=== PATIENT | female | born 1945 | race Caucasian/White ===

== ENCOUNTER → 2017-12-16 14:46 | Outpatient (CLI) | payer MEDICARE | END | disposition home or self-care (01) | LOC: D.LABREF 14:46 | PROVIDERS: Orthopaedic Surgery | DX: M17.11 Unilateral primary osteoarthritis, right knee (principal); Z11.8 Encounter for screening for other infectious and parasitic diseases ==

== ENCOUNTER 2018-01-15 10:00 | Inpatient (IN) | payer MEDICARE ==
[~2018-01-15] VITALS: Ht 165.1 cm; Wt 70.5 kg
--- NOTE | ~2018-01-15 | MORECARE ---
CASE MANAGEMENT DISCHARGE SUMMARY PATIENT: YUNG PETERSON UNIT: [id number] ADM DATE: 01/21/18 AGE: 72 : 43 SEX: F ROOM/BED: D.2239 AUTHOR: WALTDOC PHYSICIAN: REFERRING PHYSICIAN: GRZEGORZ MUSE DO DATE OF SERVICE: 01/23/18 Discharge Plan Patient Name: YUNG PETERSON Facility: [facility]:[place] : 1945 Planned Disposition: Home Anticipated Discharge Date: Discharge Date: Expected LOS: Initial Reviewer: [email or web address] Initial Review Date: 01/22/2018 Generated: 01/23/18 10:57 am Comments DCP- Discharge Planning Updated by [email or web address]: Xochilt Rodriguez on 01/23/18 8:[address] Spoke with Grzegorz with [employer] and they have the order for the walker, CPM machine, cold therapy and BSC. He states they will deliver on discharge. She does have her brother's walker that she can use in the mean time. I will call [facility] when discharged. CM will continue to follow and assist with discharge planning/needs. DCP- Discharge Planning Updated by [email or web address]: Xochilt Warrencarmen on 01/22/18 4:[address] Patient Name: YUNG PETERSON Admission Status: Elective Accout number: [id number] Admission Date: 01-21-2018 : 1945 Admission Diagnosis: Attending: GRZEGORZ MUSE Current LOS: 1 Anticipated DC Date: Planned Disposition: Home Primary Insurance: [employer]IC[employer] ADV Discharge Planning Comments: CM met with patient to discuss discharge planning, her niece is in the room and verbal permission received to discuss discharge planning with family in room. She states she lives with her daughter and son in law. States she is independent with all ADL's and IADL's. She currently has her brother's walker, but would like her own. Discussed availability of rehab, DME and home health services. She states Quinton with [employer] is getting her a CPM machine. I will call [employer] tomorrow and verify equipment ordered. She would like to have out patient PT at [facility]. CM will continue to follow and assist with discharge planning/needs. Business Performance Manager: Xochilt Rodriguez DCPIA - Discharge Planning Initial Assessment Updated by [email or web address]: Xochilt Jennifer on 01/22/18 5:19 pm * Is the patient Alert and Oriented? Yes * How many steps to enter\exit or inside your home? 2/0 * PCP Dr. Jones * Pharmacy [facility] in [place] * Preadmission Environment Home with Family * ADLs Independent * Equipment None * List name and contact numbers for known caregivers / representatives who currently or will assist patient after discharge: Martha rai - [phone] Shakila Riggins - DTR - [phone] Addy Scott brother - [phone] * Verbal permission to speak to the caregivers and representatives has been obtained from the patient. Yes * Community resources currently utilized None * Additional services required to return to the preadmission environment? Yes * Can the patient safely return to the preadmission environment? Yes * Has this patient been hospitalized within the prior 30 days at any hospital? No Last DP export: 01/22/18 4:36 Patient Name: YUNG PETERSON Page [id number] at 0958 All edits/amendments must be made on the electronic document DICTATION DATE: 01/23/18956 PARTNER CCO: ARAMIS 01/23/18956 RPT#: [id number] DC DATE: STATUS: ADM IN [facility] [address] [place] [address] END OF REPORT
--- NOTE | ~2018-01-15 | MORECARE ---
CASE MANAGEMENT DISCHARGE SUMMARY PATIENT: YUNG PETERSON UNIT: [id number] ADM DATE: 01/21/18 AGE: 72 : 43 SEX: F ROOM/BED: D.2239 AUTHOR: VALE GODOY PHYSICIAN: REFERRING PHYSICIAN: ENMANUEL MUSE DO DATE OF SERVICE: 01/22/18 Discharge Plan Patient Name: YUNG PETERSON [facility] : 1945 Planned Disposition: Home Anticipated Discharge Date: Discharge Date: Expected LOS: Initial Reviewer: [email or web address] Initial Review Date: 01/22/2018 Generated: 01/22/18 6:27 pm DCPIA - Discharge Planning Initial Assessment Updated by [email or web address]: Xochilt Rodriguez on 01/22/18 5:19 pm * Is the patient Alert and Oriented? Yes * How many steps to enter\exit or inside your home? 2/0 * PCP Dr. Jones * Pharmacy [facility] in [place] * Preadmission Environment Home with Family * ADLs Independent * Equipment None * List name and contact numbers for known caregivers / representatives who currently or will assist patient after discharge: Martha rai - [phone] Shakila Riggins [facility] - [phone] Addy Scott [facility] [phone] * Verbal permission to speak to the caregivers and representatives has been obtained from the patient. Yes * Community resources currently utilized None * Additional services required to return to the preadmission environment? Yes * Can the patient safely return to the preadmission environment? Yes * Has this patient been hospitalized within the prior 30 days at any hospital? No Last DP export: 01/22/18 4:18 Patient Name: YUNG PETERSON Page 24088 at 1727 All edits/amendments must be made on the electronic document DICTATION DATE: 01/22/181726 TANNING SOLUTION MAKER: ARAMIS 01/22/181726 RPT#: [id number] DC DATE: STATUS: ADM IN [facility] [address] [place] [address] END OF REPORT
--- NOTE | ~2018-01-15 | MORECARE ---
CASE MANAGEMENT DISCHARGE SUMMARY PATIENT: YUNG PETERSON UNIT: [id number] ADM DATE: 01/21/18 AGE: 72 : 43 SEX: F ROOM/BED: D.2239 AUTHOR: WALTDOC PHYSICIAN: REFERRING PHYSICIAN: GRZEGORZ MUSE DO DATE OF SERVICE: 01/31/18 Discharge Plan Patient Name: YUNG PETERSON Facility: [facility]:[place] : 1945 Planned Disposition: Home Anticipated Discharge Date: Discharge Date: 01/29/2018 Expected LOS: Initial Reviewer: [email or web address] Initial Review Date: 01/22/2018 Generated: 01/31/18 6:06 pm Comments DCP- Discharge Planning Updated by [email or web address]: Xochilt Rodriguez on 01/29/18 10:[address] Received order for discharge. Inpatient rehab at [facility] has accepted her. She will discharge to inpatient rehab at [facility] today. Patient and niece are in the room and informed and agree with discharge plan. CM will continue to follow and assist with discharge planning/needs. DCP- Discharge Planning Updated by [email or web address]: Xochilt Rodriguez on 01/23/18 8:[address] Spoke with Grzegorz with [email or web address] and they have the order for the walker, CPM machine, cold therapy and BSC. He states they will deliver on discharge. She does have her brother's walker that she can use in the mean time. I will call [facility] when discharged. CM will continue to follow and assist with discharge planning/needs. DCP- Discharge Planning Updated by [email or web address]: Xochilt Rodriguez on 01/22/18 4:[address] Patient Name: YUNG PETERSON Admission Status: Elective Accout number: [id number] Admission Date: 01-21-2018 : 1945 Admission Diagnosis: Attending: GRZEGORZ MUSE Current LOS: 1 Anticipated DC Date: Planned Disposition: Home Primary Insurance: WE[employer] MEDICARE ADV Discharge Planning Comments: CM met with patient to discuss discharge planning, her niece is in the room and verbal permission received to discuss discharge planning with family in room. She states she lives with her daughter and son in law. States she is independent with all ADL's and IADL's. She currently has her brother's walker, but would like her own. Discussed availability of rehab, DME and home health services. She states Quinton with [employer] is getting her a CPM machine. I will call [employer] tomorrow and verify equipment ordered. She would like to have out patient PT at [facility]. CM will continue to follow and assist with discharge planning/needs. Brand Manager: Xochilt Warrencarmen DCPIA - Discharge Planning Initial Assessment Updated by [email or web address]: Xochilt Warrencarmen on 01/22/18 5:19 pm * Is the patient Alert and Oriented? Yes * How many steps to enter\exit or inside your home? 2/0 * PCP Dr. Jones * Pharmacy [facility] in [place] * Preadmission Environment Home with Family * ADLs Independent * Equipment None * List name and contact numbers for known caregivers / representatives who currently or will assist patient after discharge: Martha rai - [phone] Shakila Gilson DTR - [phone] Addy Scott [facility] - [phone] * Verbal permission to speak to the caregivers and representatives has been obtained from the patient. Yes * Community resources currently utilized None * Additional services required to return to the preadmission environment? Yes * Can the patient safely return to the preadmission environment? Yes * Has this patient been hospitalized within the prior 30 days at any hospital? No Coverage Notice Reviewer: [email or web address] - Xochilt Warrencarmen Notice Issued Date-Time: 01/28/2018 11:15 Notice Type: IM Discharge Notice Notice Delivered To: Patient Relationship to Patient: Self Overedge Sewer Name: Delivery Method: HAND - Hand Delivered Caitlin Days: Prior Verbal Notification: Recipient Understood Notice: Yes Recipient Signature: Yes Med Rec Note Co-signed by Attending: Coverage Notice Comment: IMM explained, signed, copy given, original placed in MR Last DP export: 01/29/18 10:52 Patient Name: YUNG PETERSON Page [id number] at 1706 All edits/amendments must be made on the electronic document DICTATION DATE: 01/31/181705 UI DESIGNER: ARAMIS 01/31/181705 RPT#: [id number] DC DATE:01/29/18 STATUS: DIS IN [facility] [address] [place] [address] END OF REPORT
--- NOTE | ~2018-01-15 | MORECARE ---
CASE MANAGEMENT DISCHARGE SUMMARY PATIENT: YUNG PETERSON UNIT: [id number] ADM DATE: 01/21/18 AGE: 72 : 43 SEX: F ROOM/BED: D.2239 AUTHOR: VALE GODOY PHYSICIAN: REFERRING PHYSICIAN: GRZEGORZ MUSE DO DATE OF SERVICE: 01/29/18 Discharge Plan Patient Name: YUNG PETERSON Facility: [facility]:[place] : 1945 Planned Disposition: Home Anticipated Discharge Date: Discharge Date: Expected LOS: Initial Reviewer: [email or web address] Initial Review Date: 01/22/2018 Generated: 01/29/18 12:52 pm Comments DCP- Discharge Planning Updated by [email or web address]: Xochilt Rodriguez on 01/29/18 10:[address] Received order for discharge. Inpatient rehab at [facility] has accepted her. She will discharge to inpatient rehab at [facility] today. Patient and niece are in the room and informed and agree with discharge plan. CM will continue to follow and assist with discharge planning/needs. DCP- Discharge Planning Updated by [email or web address]: Xochilt Rodriguez on 01/23/18 8:[address] Spoke with Grzegorz with [facility] and they have the order for the walker, CPM machine, cold therapy and BSC. He states they will deliver on discharge. She does have her brother's walker that she can use in the mean time. I will call [facility] when discharged. CM will continue to follow and assist with discharge planning/needs. DCP- Discharge Planning Updated by [email or web address]: Xochilt Rodriguez on 01/22/18 4:[address] Patient Name: YUNG PETERSON Admission Status: Elective Accout number: [id number] Admission Date: 01-21-2018 : 1945 Admission Diagnosis: Attending: GRZEGORZ MUSE Current LOS: 1 Anticipated DC Date: Planned Disposition: Home Primary Insurance: WE[employer] MEDICARE ADV Discharge Planning Comments: CM met with patient to discuss discharge planning, her niece is in the room and verbal permission received to discuss discharge planning with family in room. She states she lives with her daughter and son in law. States she is independent with all ADL's and IADL's. She currently has her brother's walker, but would like her own. Discussed availability of rehab, DME and home health services. She states Quinton with [employer] is getting her a CPM machine. I will call [employer] tomorrow and verify equipment ordered. She would like to have out patient PT at [facility]. CM will continue to follow and assist with discharge planning/needs. Stopboard Assembler: Xochiltabdirizak Rodriguez DCPIA - Discharge Planning Initial Assessment Updated by [email or web address]: Xochilt Jennifer on 01/22/18 5:19 pm * Is the patient Alert and Oriented? Yes * How many steps to enter\exit or inside your home? 2/0 * PCP Dr. Jones * Pharmacy [facility] in [place] * Preadmission Environment Home with Family * ADLs Independent * Equipment None * List name and contact numbers for known caregivers / representatives who currently or will assist patient after discharge: Martha rai - [phone] Shakila Riggins DTR - [phone] Addy Scott [facility] - [phone] * Verbal permission to speak to the caregivers and representatives has been obtained from the patient. Yes * Community resources currently utilized None * Additional services required to return to the preadmission environment? Yes * Can the patient safely return to the preadmission environment? Yes * Has this patient been hospitalized within the prior 30 days at any hospital? No Coverage Notice Reviewer: [email or web address] - Xochilt Jennifer Notice Issued Date-Time: 01/28/2018 11:15 Notice Type: IM Discharge Notice Notice Delivered To: Patient Relationship to Patient: Self Slicing Machine Operator Name: Delivery Method: HAND - Hand Delivered Caitlin Days: Prior Verbal Notification: Recipient Understood Notice: Yes Recipient Signature: Yes Med Rec Note Co-signed by Attending: Coverage Notice Comment: IMM explained, signed, copy given, original placed in MR Last DP export: 01/23/18 8:57 Patient Name: YUNG PETERSON Page 26929 at 1152 All edits/amendments must be made on the electronic document DICTATION DATE: 01/29/18 1151 SOUND PRINTER: ARAMIS 01/29/18 1151 RPT#: [id number] DC DATE: STATUS: ADM IN [facility] [address] [place] [address] END OF REPORT
--- NOTE | ~2018-01-15 | MORECARE ---
CASE MANAGEMENT DISCHARGE SUMMARY PATIENT: YUNG PETERSON UNIT: [id number] ADM DATE: 01/21/18 AGE: 72 : 43 SEX: F ROOM/BED: D.2239 AUTHOR: VALE GODOY PHYSICIAN: REFERRING PHYSICIAN: ENMANUEL MUSE DO DATE OF SERVICE: 01/22/18 Discharge Plan Patient Name: YUNG PETERSON Facility: [facility]:[place] : 1945 Planned Disposition: Home Anticipated Discharge Date: Discharge Date: Expected LOS: Initial Reviewer: [email or web address] Initial Review Date: 01/22/2018 Generated: 01/22/18 6:18 pm Patient Name: YUNG PETERSON Page 53484 at 1718 All edits/amendments must be made on the electronic document DICTATION DATE: 01/22/181717 BULLET ASSEMBLY PRESS SETTER OPERATOR: ARAMIS 01/22/181717 RPT#: [id number] DC DATE: STATUS: ADM IN [facility] [address] [place] [address] END OF REPORT
--- NOTE | ~2018-01-15 | MORECARE ---
CASE MANAGEMENT DISCHARGE SUMMARY PATIENT: YUNG PETERSON UNIT: [id number] ADM DATE: 01/21/18 AGE: 72 : 43 SEX: F ROOM/BED: D.2239 AUTHOR: WALTDOC PHYSICIAN: REFERRING PHYSICIAN: ENMANUEL MUSE DO DATE OF SERVICE: 01/22/18 Discharge Plan Patient Name: YUNG PETERSON Facility: [facility]:[place] : 1945 Planned Disposition: Home Anticipated Discharge Date: Discharge Date: Expected LOS: Initial Reviewer: [email or web address] Initial Review Date: 01/22/2018 Generated: 01/22/18 6:36 pm Comments DCP- Discharge Planning Updated by [email or web address]: Xochilt Rodriguez on 01/22/18 4:[address] Patient Name: YUNG PETERSON Admission Status: Elective Accout number: [id number] Admission Date: 01-21-2018 : 1945 Admission Diagnosis: Attending: ENMANUEL MUSE Current LOS: 1 Anticipated DC Date: Planned Disposition: Home Primary Insurance: WE[employer] MEDICARE ADV Discharge Planning Comments: CM met with patient to discuss discharge planning, her niece is in the room and verbal permission received to discuss discharge planning with family in room. She states she lives with her daughter and son in law. States she is independent with all ADL's and IADL's. She currently has her brother's walker, but would like her own. Discussed availability of rehab, DME and home health services. She states Quinton with [employer] is getting her a CPM machine. I will call [employer] tomorrow and verify equipment ordered. She would like to have out patient PT at [facility]. CM will continue to follow and assist with discharge planning/needs. Cushion Stuffer: Xochilt Rodriguez DCPIA - Discharge Planning Initial Assessment Updated by [email or web address]: Xochilt Rodriguez on 01/22/18 5:19 pm * Is the patient Alert and Oriented? Yes * How many steps to enter\exit or inside your home? 2/0 * PCP Dr. Jones * Pharmacy [facility] in [place] * Preadmission Environment Home with Family * ADLs Independent * Equipment None * List name and contact numbers for known caregivers / representatives who currently or will assist patient after discharge: Martha rai - [phone] Shakila Riggins - DTR - [phone] Addy Scott - brother - [phone] * Verbal permission to speak to the caregivers and representatives has been obtained from the patient. Yes * Community resources currently utilized None * Additional services required to return to the preadmission environment? Yes * Can the patient safely return to the preadmission environment? Yes * Has this patient been hospitalized within the prior 30 days at any hospital? No Last DP export: 01/22/18 4:27 Patient Name: YUNG PETERSON Page 58076 at 1736 All edits/amendments must be made on the electronic document DICTATION DATE: 01/22/181735 POULTRYMAN: ARAMIS 01/22/181735 RPT#: [id number] DC DATE: STATUS: ADM IN [facility] [address] [place] [address] END OF REPORT
--- NOTE | ~2018-01-15 | OP ---
PATIENT NAME: YUNG PETERSON MEDICAL RECORD: [id number] :[birth year] LOCATION:D.[facility] [address] ADMISSION DATE:01/21/18 SURGEON: GRZEGORZ MUSE DO DATE OF OPERATION: 01/21/2018 PROCEDURE PERFORMED: Right total knee arthroplasty. PREOPERATIVE DIAGNOSIS: End-stage severe right knee osteoarthritis. POSTOPERATIVE DIAGNOSIS: End-stage severe right knee osteoarthritis. INDICATIONS: Ms. Peterson is a 72-year-old female that has been seen in my office for quite some time. I have tried all manner of conservative management including injections, therapy exercises at home and she did not respond well as of recently through the last injection and was tired of dealing with the pain and is affecting her activities of daily living and she wanted something done surgically. She was informed of the risks and benefits including fracture, infection, bleeding, damage to nerves and vessels, need for further surgery. She was okay with that and those risks and consented to the procedure. SURGEON: Grzegorz Muse DO DESCRIPTION OF PROCEDURE: The patient was given a block by anesthesia in the preoperative area and taken to the operative suite, laid in supine position. The right lower extremity was prepped and draped in sterile fashion. A timeout was performed and everyone was in agreement with the correct side, site, patient and procedure. The patient was given 2 grams of Ancef and 80 units of gentamicin preoperatively. She did have a UTI preoperatively and was covered it with gentamicin. She was informed of the increased risk of that with UTI. After the timeout had been performed and the right lower extremity was prepped and draped, the incision was marked out. Ioban was placed over the skin. The incision was then made down to the capsule with a 10-blade scalpel in the midline of the knee. A medial parapatellar approach was used to the capsule and the fat pad was removed. Patella was everted. Patella was milled down. Once the patella was milled down, the femur was exposed and bleeding was all coagulated with Aquamantys and the plasma knife during the surgery due to the fact that no tourniquet was used. The intramedullary canal was then entered with a drill in the femur and the distal femur guide was used and the distal femur was cut. Tibia was then exposed. The tibia was cut. The menisci were removed and the tibia then was recut twice in order to fit the 10 extension block. All the debris and meniscus had been removed and the Aquamantys was used in the posterior capsule and from the medial and lateral genicular arteries. Then 10 extension block fit very well at that time and then the femur was measured to be a 60. A 4-in-1 cutting block was then placed and cut and then a trial of 60 was put on the femur. The tibial tray was inflated and a 10 poly was used and the knee was ranged and seemed to fit well with the 10 poly. The rotation was then marked on the tibial tray and this was removed. The lug holes were drilled in the femur and then the patella was drilled as well. The patella was somewhat thin on the medial side, so it was more centered, then medialized before placement on the patella. The tibia was then exposed and sized to be 67. The 67 was punched and drilled and cement was mixed. After the tibia and femur had been irrigated, cement was placed on the tibia and the tibial implant and impacted in, excess cement was removed. The femur was then put into place. The 10 poly was put in between them and the knee brought to extension. The patella was then put into place and cemented in. Once the cement had dried, the knee OPERATIVE REPORT [id number] YUNG PETERSON was ranged and trialed the 10 and 10 poly seemed to fit very well, had good stability medial and lateral and then poly was put in and a 31 patella was used as well. The tibial poly locking mechanism was then put into place. Knee was thoroughly irrigated and tobramycin, vancomycin was put into the knee as well as Surgicel pellets. The capsule was then closed with #2 Ethibond and #1 Stratafix was ran on the capsule. The layer above the capsule was then irrigated. The rest of the antibiotics were put there as well as the Surgicel pellets. The skin was then closed with 2-0 Vicryl in an inverted interrupted fashion and a Zipline was placed on the Knee. Adaptic, 4 x 4s, ABD, Webril, Roberth wrap were then placed on the knee and KAREEN hose stockinette was placed up to the knee. The patient was awakened and taken to recovery in stable condition. Blood loss approximately 150 mL. Complications none. TRANSINT:[id number] Voice Confirmation ID: [id number] DOCUMENT ID: [id number] GRZEGORZ MUSE DO at 1659 CC: [id number] DICTATION DATE: 01/21/18 1443 PHOTO BOOTH OPERATOR: 01/21/18 1545 ADM IN [facility] [address] [place] [id number]
[~2018-01-15 10:00] MED LIST: CELEXA40 MG PO; GLUCOPHAGE850 MG PO; LISINOPRIL5 MG PO; OMEPRAZOLE40 MG PO; PEPCID AC20 MG PO; TYLENOL W/CODEI1 TAB PO; XANAX0.25 MG PO
[2018-01-15 12:01] LABS: BASOPHILS 0.3 % (0-2); EOSINOPHILS 3.6 % (0-7); HEMATOCRIT 33.5 % (36.0-48.0); HEMOGLOBIN 10.4 g/dL (12-16); IMMATURE GRANULOCYTES 0.2 % (0-5); LYMPHOCYTES 26.3 % (15-50); MCH 25.8 pg (26.0-34.0); MCV 83.1 fL (80.0-100.0); MEAN PLATELET VOLUME 10.1 fL (7.4-10.4); MONOCYTES 5.9 % (2-11); NEUTROPHILS 63.7 % (40-80); PLATELET COUNT 283 10x3/uL (130-400); RBC 4.03 10x6/uL (4.00-5.40); RDW 14.5 % (11.5-14.5); WBC 6.6 10x3/uL (4.8-10.8)
[2018-01-15 12:02] LABS: CALCIUM 8.4 mg/dL (8.5-10.1); CARBON DIOXIDE 24.7 mmol/L (21.0-32.0); CREATININE - SERUM 0.8 mg/dL (0.6-1.3); POTASSIUM - SERUM 3.7 mmol/L (3.5-5.1)
[2018-01-15 12:05] LABS: APTT 24.8 SECONDS (22.8-39.4); INR 0.93 (0.85-1.17); PROTIME 12.1 SECONDS (11.6-15.0)
[2018-01-15 12:44] LABS: APPEARANCE HAZY (CLEAR); BACTERIA MODERATE /hpf (NONE SEEN); BILIRUBIN NEGATIVE (NEGATIVE); COLOR YELLOW (YELLOW); EPITHELIAL CELLS 0-5 /hpf (0-5); GLUCOSE NEGATIVE (NEGATIVE); KETONE NEGATIVE (NEGATIVE); MUCUS >1+ /lpf (NONE SEEN); NITRITE NEGATIVE (NEGATIVE); PROTEIN NEGATIVE (NEGATIVE); RED CELLS - URINE RARE /hpf (0-5); SPECIFIC GRAVITY 1.025 (1.005-1.020); UROBILINOGEN NORMAL (NORMAL)
[2018-01-21 10:08] VITALS: BP 128/69; BMI 25.8
[2018-01-21 15:33] VITALS: BP 127/65
[2018-01-21 20:00] VITALS: BP 127/55
[2018-01-22 03:28] VITALS: BP 108/57
[2018-01-22 05:51] LABS: BASOPHILS 0.2 % (0-2); EOSINOPHILS 1.4 % (0-7); HEMATOCRIT 26.5 % (36.0-48.0); HEMOGLOBIN 8.5 g/dL (12-16); IMMATURE GRANULOCYTES 0.3 % (0-5); LYMPHOCYTES 24.3 % (15-50); MCH 26.6 pg (26.0-34.0); MCHC 32.1 g/dL (31.0-37.0); MCV 83.1 fL (80.0-100.0); MONOCYTES 9.9 % (2-11); NEUTROPHILS 63.9 % (40-80); RBC 3.19 10x6/uL (4.00-5.40); RDW 15.1 % (11.5-14.5); WBC 6.4 10x3/uL (4.8-10.8)
[2018-01-22 05:54] LABS: ANION GAP 13.9 mmol/L (8-16); CALCIUM 7.7 mg/dL (8.5-10.1); CARBON DIOXIDE 22.8 mmol/L (21.0-32.0); POTASSIUM - SERUM 3.7 mmol/L (3.5-5.1)
[2018-01-22 06:25] LABS: PLATELET COUNT 194 10x3/uL (130-400)
[2018-01-22 09:07] VITALS: BP 115/57
[2018-01-22 13:09] VITALS: BP 134/62
[2018-01-22 14:13] VITALS: BMI 25.7
[2018-01-22 17:14] VITALS: BP 113/62
[2018-01-22 20:00] VITALS: BP 153/69
[2018-01-23 04:00] VITALS: BP 126/54
[2018-01-23 04:57] LABS: BASOPHILS 0 % (0-2); EOSINOPHILS 1.3 % (0-7); HEMATOCRIT 25.5 % (36.0-48.0); HEMOGLOBIN 8.1 g/dL (12-16); IMMATURE GRANULOCYTES 0.3 % (0-5); LYMPHOCYTES 15.3 % (15-50); MCHC 31.8 g/dL (31.0-37.0); MONOCYTES 8.8 % (2-11); NEUTROPHILS 74.3 % (40-80); PLATELET COUNT 163 10x3/uL (130-400); RBC 3.11 10x6/uL (4.00-5.40); RDW 14.9 % (11.5-14.5)
[2018-01-23 05:17] LABS: ANION GAP 14.6 mmol/L (8-16); CALCIUM 7.8 mg/dL (8.5-10.1); CARBON DIOXIDE 22.3 mmol/L (21.0-32.0); POTASSIUM - SERUM 3.9 mmol/L (3.5-5.1)
[2018-01-23 05:33] LABS: CREATININE - SERUM 1.6 mg/dL (0.6-1.3)
[2018-01-23 08:34] VITALS: BP 135/68
[2018-01-23 10:32] LABS: AMORPHOUS SEDIMENT <1+ /lpf (NONE SEEN); APPEARANCE HAZY (CLEAR); BACTERIA FEW /hpf (NONE SEEN); BILIRUBIN NEGATIVE (NEGATIVE); COLOR YELLOW (YELLOW); EPITHELIAL CELLS 0-5 /hpf (0-5); GLUCOSE NEGATIVE (NEGATIVE); KETONE NEGATIVE (NEGATIVE); MUCUS <1+ /lpf (NONE SEEN); NITRITE NEGATIVE (NEGATIVE); PROTEIN NEGATIVE (NEGATIVE); UROBILINOGEN NORMAL (NORMAL); WHITE CELLS - URINE 0-5 /hpf (0-5)
[2018-01-23 10:36] LABS: YEAST <1+ /hpf (NONE SEEN)
[2018-01-23 15:45] VITALS: BP 128/66
[2018-01-23 20:00] VITALS: BP 146/70
[2018-01-24] VITALS (9 sets, daily range): BP systolic 113–151; BP diastolic 59–71
[2018-01-24 06:19] LABS: HEMATOCRIT 23.9 % (36.0-48.0); HEMOGLOBIN 7.8 g/dL (12-16); MCH 26.6 pg (26.0-34.0); MCHC 32.6 g/dL (31.0-37.0); MCV 81.6 fL (80.0-100.0); MEAN PLATELET VOLUME 9.9 fL (7.4-10.4); NEUTROPHILS 69.2 % (40-80); PLATELET COUNT 175 10x3/uL (130-400); RBC 2.93 10x6/uL (4.00-5.40); RDW 14.5 % (11.5-14.5); WBC 6.3 10x3/uL (4.8-10.8)
[2018-01-24 06:30] LABS: ANION GAP 14.3 mmol/L (8-16); CALCIUM 7.6 mg/dL (8.5-10.1); CARBON DIOXIDE 21.4 mmol/L (21.0-32.0); CREATININE - SERUM 1.8 mg/dL (0.6-1.3); POTASSIUM - SERUM 3.7 mmol/L (3.5-5.1)
[2018-01-25 04:02] VITALS: BP 150/68; Ht 165.1 cm; Wt 70.5 kg
[2018-01-25 04:43] VITALS: BP 130/58
[2018-01-25 05:31] LABS: BASOPHILS 0.2 % (0-2); EOSINOPHILS 4.3 % (0-7); HEMATOCRIT 25.1 % (36.0-48.0); IMMATURE GRANULOCYTES 0.2 % (0-5); LYMPHOCYTES 19.6 % (15-50); MCH 26.1 pg (26.0-34.0); MCHC 31.9 g/dL (31.0-37.0); MEAN PLATELET VOLUME 9.8 fL (7.4-10.4); MONOCYTES 11.1 % (2-11); NEUTROPHILS 64.6 % (40-80); RBC 3.06 10x6/uL (4.00-5.40); RDW 15.4 % (11.5-14.5)
[2018-01-25 05:35] LABS: PLATELET COUNT 212 10x3/uL (130-400)
[2018-01-25 05:52] LABS: ANION GAP 16.8 mmol/L (8-16); CALCIUM 7.9 mg/dL (8.5-10.1); CARBON DIOXIDE 18.8 mmol/L (21.0-32.0); CREATININE - SERUM 1.9 mg/dL (0.6-1.3); POTASSIUM - SERUM 3.6 mmol/L (3.5-5.1)
[2018-01-25 07:51] VITALS: BP 129/62
[2018-01-25 12:55] VITALS: BP 137/65
[2018-01-25 17:17] VITALS: BP 113/56
[2018-01-25 20:00] VITALS: BP 126/48
[2018-01-26 04:00] VITALS: BP 104/60
[2018-01-26 06:10] LABS: BASOPHILS 0 % (0-2); EOSINOPHILS 5.4 % (0-7); HEMATOCRIT 25.6 % (36.0-48.0); HEMOGLOBIN 8.2 g/dL (12-16); IMMATURE GRANULOCYTES 0.2 % (0-5); LYMPHOCYTES 27.1 % (15-50); MCH 26.1 pg (26.0-34.0); MCV 81.5 fL (80.0-100.0); MEAN PLATELET VOLUME 9.6 fL (7.4-10.4); MONOCYTES 10.5 % (2-11); NEUTROPHILS 56.8 % (40-80); PLATELET COUNT 222 10x3/uL (130-400); RBC 3.14 10x6/uL (4.00-5.40); RDW 15.3 % (11.5-14.5); WBC 4.7 10x3/uL (4.8-10.8)
[2018-01-26 06:30] LABS: ANION GAP 14.7 mmol/L (8-16); CARBON DIOXIDE 22.1 mmol/L (21.0-32.0); CREATININE - SERUM 1.9 mg/dL (0.6-1.3); POTASSIUM - SERUM 3.8 mmol/L (3.5-5.1); URIC ACID 5.6 mg/dL (2.6-7.2)
[2018-01-26 08:34] VITALS: BP 124/58
[2018-01-26 08:56] LABS: APPEARANCE CLEAR (CLEAR); BILIRUBIN NEGATIVE (NEGATIVE); COLOR STRAW (YELLOW); GLUCOSE NEGATIVE (NEGATIVE); KETONE NEGATIVE (NEGATIVE); NITRITE NEGATIVE (NEGATIVE); PROTEIN NEGATIVE (NEGATIVE); UROBILINOGEN NORMAL (NORMAL)
[2018-01-26 17:26] VITALS: BP 128/102
[2018-01-26 19:44] VITALS: BP 116/60
[2018-01-27 04:33] VITALS: BP 113/50
[2018-01-27 04:38] LABS: BASOPHILS 0.2 % (0-2); EOSINOPHILS 5.1 % (0-7); HEMATOCRIT 25.8 % (36.0-48.0); HEMOGLOBIN 8.2 g/dL (12-16); LYMPHOCYTES 21.9 % (15-50); MCHC 31.8 g/dL (31.0-37.0); MCV 81.9 fL (80.0-100.0); MEAN PLATELET VOLUME 9.5 fL (7.4-10.4); MONOCYTES 11.4 % (2-11); NEUTROPHILS 61.4 % (40-80); PLATELET COUNT 259 10x3/uL (130-400); RBC 3.15 10x6/uL (4.00-5.40); RDW 15.1 % (11.5-14.5); WBC 4.9 10x3/uL (4.8-10.8)
[2018-01-27 05:02] LABS: ANION GAP 15.9 mmol/L (8-16); CALCIUM 8.3 mg/dL (8.5-10.1); CARBON DIOXIDE 21.8 mmol/L (21.0-32.0); POTASSIUM - SERUM 3.7 mmol/L (3.5-5.1)
[2018-01-27 08:55] VITALS: BP 128/59
[2018-01-27 12:32] VITALS: BP 136/61
[2018-01-27 16:31] VITALS: BP 141/63
[2018-01-27 20:00] VITALS: BP 127/57
[2018-01-28 03:58] VITALS: BP 154/77
[2018-01-28 06:30] LABS: BASOPHILS 0.2 % (0-2); EOSINOPHILS 6.2 % (0-7); HEMATOCRIT 26.4 % (36.0-48.0); HEMOGLOBIN 8.4 g/dL (12-16); IMMATURE GRANULOCYTES 0.2 % (0-5); LYMPHOCYTES 30.9 % (15-50); MCH 25.9 pg (26.0-34.0); MCHC 31.8 g/dL (31.0-37.0); MCV 81.5 fL (80.0-100.0); MONOCYTES 12.2 % (2-11); NEUTROPHILS 50.3 % (40-80); PLATELET COUNT 245 10x3/uL (130-400); RBC 3.24 10x6/uL (4.00-5.40); RDW 14.7 % (11.5-14.5); WBC 4.3 10x3/uL (4.8-10.8)
[2018-01-28 07:03] LABS: ANION GAP 13.9 mmol/L (8-16); CALCIUM 8.5 mg/dL (8.5-10.1); CARBON DIOXIDE 25.7 mmol/L (21.0-32.0); POTASSIUM - SERUM 3.6 mmol/L (3.5-5.1)
[2018-01-28] MEDS ORDERED: ELIQUIS2.5 MG PO (08:06)
[2018-01-28] MEDS ORDERED: HYDROCODON-ACE1 EAC7 PO (08:07)
[2018-01-28] MEDS ORDERED: HUMULIN R100 U/ML SC (08:08)
[2018-01-28 08:45] VITALS: BP 125/52
[2018-01-28 12:45] VITALS: BP 123/52
[2018-01-28 17:50] VITALS: BP 125/57
[2018-01-28 20:00] VITALS: BP 123/54
[2018-01-29 04:34] LABS: BASOPHILS 0.2 % (0-2); EOSINOPHILS 6.9 % (0-7); HEMATOCRIT 26.9 % (36.0-48.0); HEMOGLOBIN 8.6 g/dL (12-16); IMMATURE GRANULOCYTES 0.2 % (0-5); LYMPHOCYTES 29.9 % (15-50); MCH 26.1 pg (26.0-34.0); MCV 81.5 fL (80.0-100.0); MEAN PLATELET VOLUME 9.4 fL (7.4-10.4); NEUTROPHILS 52.8 % (40-80); PLATELET COUNT 289 10x3/uL (130-400); RDW 14.5 % (11.5-14.5); WBC 4.6 10x3/uL (4.8-10.8)
[2018-01-29 05:00] LABS: ANION GAP 13.9 mmol/L (8-16); CALCIUM 8.5 mg/dL (8.5-10.1); CARBON DIOXIDE 27.3 mmol/L (21.0-32.0)
[2018-01-29 05:07] LABS: POTASSIUM - SERUM 4.2 mmol/L (3.5-5.1)
[2018-01-29 06:00] VITALS: BP 124/53
[2018-01-29 09:28] VITALS: BP 125/68
[2018-01-29 12:49] VITALS: BP 120/62
== END 2018-01-29 15:54 | DRG 469 ==
LOC: D.MS 01-21 08:49 → D.SDCHOLD 01-21 08:49 → D.MS 01-21 15:11
PROVIDERS: Internal Medicine Nephrology; Orthopaedic Surgery
PROC: 0SRC0J9 Replacement of Right Knee Joint with Synthetic Substitute, Cemented, Open Approach (ICD-10-PCS; principal; 2018-01-21 10:15)
DX: M17.11 Unilateral primary osteoarthritis, right knee (principal); N17.0 Acute kidney failure with tubular necrosis; D62 Acute posthemorrhagic anemia; N39.0 Urinary tract infection, site not specified; Z79.84 Long term (current) use of oral hypoglycemic drugs; E11.9 Type 2 diabetes mellitus without complications; K21.9 Gastro-esophageal reflux disease without esophagitis; I10 Essential (primary) hypertension; F41.8 Other specified anxiety disorders; R39.15 Urgency of urination; W19.XXXA Unspecified fall, initial encounter; Y92.239 Unspecified place in hospital as the place of occurrence of the external cause

== ENCOUNTER 2018-01-29 15:44 | Inpatient (IN) | payer MEDICARE ==
[~2018-01-29] VITALS: Ht 165.1 cm; Wt 68.0 kg
--- NOTE | ~2018-01-29 | DS ---
PATIENT:YUNG PETERSON :41 MEDICAL RECORD: [id number] DISCHARGE SUMMARY ADMISSION DATE: 01/29/18 DISCHARGE DATE: 02/06/18 This is a discharge dated 02/06/2018 from inpatient rehabilitation. PRIMARY DIAGNOSIS: Decreased functional ability and ability to provide activities of daily living, status post a right total knee arthroplasty. SECONDARY DIAGNOSES: 1. Osteoarthritis. 2. Acute blood loss anemia. 3. Gastroesophageal reflux disease. 4. Depression. 5. Esophageal stricture by history. 6. Acute kidney injury. 7. Diabetes. HOSPITAL COURSE: Full H&P is located elsewhere on the chart on this 72-year-old female who was admitted to inpatient rehab for physical therapy and occupational therapy to improve gait, transfer skills, bed mobility, and activities of daily living to a modified independent level. She was evaluated by PT and OT and their plans of care were followed. She required fpc care for observation and assessment, medication administration, as well as wound care and monitoring of surgical incisions. Electrolytes were managed by protocol. Fingerstick blood sugars were monitored throughout her hospital stay with appropriate adjustment in medications as needed. She was cooperative with therapies, progressing towards goals. Case management was involved for discharge planning. She was considered stable for discharge on 02/06/2018. DISCHARGE MEDICATIONS: As per discharge medication reconciliation. DISCHARGE DISPOSITION: The patient is discharged home. She will continue her current diet and level of activity. She will have home health for continued PT and OT and will follow up with primary care and specialists as directed. She did receive a flu vaccine prior to discharge. At least 30 minutes was spent in this discharge activity. TRANSINT:[id number] Voice Confirmation ID: [id number] DOCUMENT ID: [id number] Dictated By: ALKA ALEX I have interviewed/examined the above patient and agree with these documented findings. TANO GARCIA MD CC: [id number] DICTATION DATE: 03/02/18 1455 WELLNESS NURSE RN: 03/03/18 0801 DIS IN 02/06/18 [address] [place] [address]
--- NOTE | ~2018-01-29 | RHP ---
PATIENT: YUNG PETERSON MEDICAL RECORD: [id number] ACCOUNT: [id number] LOCATION:[facility] [id number] : 41 ADMISSION DATE: 01/29/18 REHABILITATION HISTORY AND PHYSICAL EXAMINATION POST ADMISSION PHYSICIAN EXAMINATION DATE OF ADMISSION TO REHAB: 01/29/2018. ADMITTING DIAGNOSIS: Debility secondary to right total knee arthroplasty and postop complications. HISTORY OF PRESENT ILLNESS: The patient is a 72-year-old female patient who is admitted secondary to debility following a right total knee and postop problems with this. She apparently complained of dull constant aching pain of her right knee on 11/08/2017. She had swelling, popping, clicking, and instability of her knee. X-rays showed unilateral osteoarthritis. On 01/21/2018, she went to the OR for a right total knee. Postop course was complicated by acute blood loss anemia with H&H of 7.8 and 23.9. She received 1 unit of packed red blood cells. She has had some mild confusion, elevated renal function secondary to acute kidney injury. Nephrology was actually consulted for this. She has had a right joint effusion with subcutaneous emphysema developed in the right knee postop. Previously, she lived with her family, was moderately independent with a rolling walker for ADLs and mobility. Currently, she is set up for min to moderate assist for ADLs and mobility. She has worked with PT. She has fair balance, but has some confusion. This increases her risk for falls. She has also had some anemia and elevated creatinine. She wants to be able to return home at her prior level of functioning. Barriers to this include anemia, pain, confusion. She is a high fall risk at this time. She has had elevation in her renal functions and hyperglycemia. COMORBIDITIES: In this patient include osteoarthritis, status post right total knee, acute blood loss anemia, microcytic anemia, elevated creatinine, debility, hyperglycemia, postop confusion, malaise, thoracic spondylosis, altered nutritional status, esophageal dilatation problems in the past and gallstones. PAST MEDICAL HISTORY: Significant for nasal problems. She has got a history of diabetes, acid reflux. She has had a problem with esophageal strictures and depression. PAST SURGICAL HISTORY: Includes wrist surgery. ALLERGIES: No known drug allergies. CURRENT MEDICATIONS: Include Protonix 40 mg daily. She is on a glucose replacement protocol for low blood sugar. She is on [place] 5/325 one tab q.4 hours p.r.n. She is on Pepcid 20 mg b.i.d., citalopram 40 mg q.h.s., Eliquis 2.5 mg b.i.d., and Xanax 0.25 mg q.6 hours p.r.n. HABITS: No current alcohol or tobacco use. FAMILY HISTORY: Noncontributory. SOCIAL HISTORY: The patient hopes to return back home and get back to her prior level of functioning. HISTORY AND PHYSICAL [id number] YUNG PETERSON REVIEW OF SYSTEMS: GENERAL: Does complain a little bit of weakness and fatigue. HEENT: Denies cold, cough, or congestion. CARDIOVASCULAR: Denies chest pain. PHYSICAL EXAMINATION: VITAL SIGNS: Stable, afebrile. GENERAL: A well-developed female in no acute distress, alert upon exam. HEENT: Normocephalic and atraumatic. Mucosa moist. NECK: Supple. No lymphadenopathy. LUNGS: Clear at this time. HEART: Regular rate and rhythm. ABDOMEN: Benign. EXTREMITIES: No clubbing, cyanosis or edema. Postop swelling appears normal. NEUROLOGIC: She seems intact. LABORATORY DATA: Her white count is 5.1, H&H 8.6 and 26.9, and platelet count is 308. Her sodium is 139, potassium 3.9, BUN and creatinine of 21 and 2.0, and blood sugar is noted to be 166. ASSESSMENT: This is a 72-year-old female patient admitted to the rehab with a working diagnosis of postop complications from a total knee replacement. The patient has potential to make improvement. We instituted the following multidisciplinary therapies including, but not limited to physical, occupational, respiratory, speech, nutritional services, prosthetics and orthotics. Given her complex medical condition and risk for more complications, rehabilitation services cannot be provided at a low level of care such as jail facility. PLAN: 1. Admit to [facility] rehab for intensive inpatient therapy to include the following disciplines: A. Physical therapy to improve gait, all transfer skills and bed mobility to a modified independent level. B. Occupational therapy to improve activities of daily living to a modified independent level. C. Case management to assist with discharge planning and placement options. D. Nutrition to assist with nutritional needs. E. Rehabilitation nursing to assist in monitoring the patient's underlying medical condition and to assist with any type of bowel or bladder management. 2. The patient's current medication and medical care will be continued. 3. The patient will be placed on standard fall precautions. 4. The patient's estimated length of stay is approximately 7-10 days. 5. We will discuss this patient during care team staff meeting this week. 6. I am going to watch her blood counts closely. I think she would probably benefit may be from another unit of packed red blood cells. I am going to discuss with the patient and see how she tolerates exercise with this and will make a decision then. TRANSINT:[id number] Voice Confirmation ID: [id number] DOCUMENT ID: [id number] 02/03/2018 Edited for SHANNA OTERO notes whether there has been none or any medical/functional change since admission: HISTORY AND PHYSICAL [id number] YUNG PETERSON - No change since preadmission screen. SHANNA attests patient continues to be appropriate for IRF: - Continues to be appropriate. TANO GARCIA MD at 1404 CC: [id number] DICTATION DATE: 01/30/18 0900 BEAM HOUSE INSPECTOR: 01/30/18 0915 DIS IN 02/06/18 [id number] [place] [address]
[~2018-01-29 15:44] MED LIST changes: +ELIQUIS2.5 MG PO; +HUMULIN R100 U/ML SC; +HYDROCODON-ACE1 EAC7 PO
[2018-01-29 15:50] VITALS: BP 140/54
[2018-01-29 19:00] VITALS: BP 140/54
[2018-01-30 06:38] LABS: BASOPHILS 0.2 % (0-2); EOSINOPHILS 4.3 % (0-7); HEMATOCRIT 26.9 % (36.0-48.0); HEMOGLOBIN 8.6 g/dL (12-16); LYMPHOCYTES 27.6 % (15-50); MCH 25.8 pg (26.0-34.0); MCV 80.8 fL (80.0-100.0); MEAN PLATELET VOLUME 9.6 fL (7.4-10.4); MONOCYTES 8.8 % (2-11); NEUTROPHILS 59.1 % (40-80); PLATELET COUNT 308 10x3/uL (130-400); RBC 3.33 10x6/uL (4.00-5.40); RDW 14.5 % (11.5-14.5); WBC 5.1 10x3/uL (4.8-10.8)
[2018-01-30 06:53] LABS: ANION GAP 12.5 mmol/L (8-16); CALCIUM 8.5 mg/dL (8.5-10.1); CARBON DIOXIDE 26.4 mmol/L (21.0-32.0); POTASSIUM - SERUM 3.9 mmol/L (3.5-5.1)
[2018-01-30 08:00] VITALS: BP 154/69
[2018-01-30 10:55] VITALS: Ht 165.1 cm; Wt 68.0 kg
[2018-01-30 19:00] VITALS: BP 141/62
[2018-01-31 07:08] LABS: BASOPHILS 0.2 % (0-2); EOSINOPHILS 2.9 % (0-7); HEMATOCRIT 27.6 % (36.0-48.0); HEMOGLOBIN 8.7 g/dL (12-16); IMMATURE GRANULOCYTES 0.2 % (0-5); LYMPHOCYTES 28.2 % (15-50); MCHC 31.5 g/dL (31.0-37.0); MCV 82.4 fL (80.0-100.0); MEAN PLATELET VOLUME 9.7 fL (7.4-10.4); MONOCYTES 10.9 % (2-11); NEUTROPHILS 57.6 % (40-80); PLATELET COUNT 364 10x3/uL (130-400); RBC 3.35 10x6/uL (4.00-5.40); RDW 14.7 % (11.5-14.5); WBC 5.1 10x3/uL (4.8-10.8)
[2018-01-31 07:20] LABS: ANION GAP 14.4 mmol/L (8-16); CALCIUM 8.9 mg/dL (8.5-10.1); CARBON DIOXIDE 26.6 mmol/L (21.0-32.0); CREATININE - SERUM 1.7 mg/dL (0.6-1.3)
[2018-01-31 08:00] VITALS: BP 154/73
[2018-01-31 19:30] VITALS: BP 148/68
[2018-02-01 22:00] VITALS: BP 145/69
[2018-02-02 11:40] VITALS: BP 139/67
[2018-02-02 19:45] VITALS: BP 143/66
[2018-02-03 08:00] VITALS: BP 129/60
[2018-02-03 08:43] LABS: ANION GAP 12.3 mmol/L (8-16); BASOPHILS 0.3 % (0-2); CALCIUM 9.4 mg/dL (8.5-10.1); CARBON DIOXIDE 28.3 mmol/L (21.0-32.0); CREATININE - SERUM 1.5 mg/dL (0.6-1.3); EOSINOPHILS 3.3 % (0-7); HEMATOCRIT 29.7 % (36.0-48.0); HEMOGLOBIN 9.3 g/dL (12-16); IMMATURE GRANULOCYTES 0.3 % (0-5); MCH 26.1 pg (26.0-34.0); MCHC 31.3 g/dL (31.0-37.0); MCV 83.4 fL (80.0-100.0); MEAN PLATELET VOLUME 9.9 fL (7.4-10.4); MONOCYTES 8.8 % (2-11); NEUTROPHILS 54.3 % (40-80); POTASSIUM - SERUM 3.6 mmol/L (3.5-5.1); RBC 3.56 10x6/uL (4.00-5.40); RDW 14.4 % (11.5-14.5); WBC 6.6 10x3/uL (4.8-10.8)
[2018-02-03 08:45] LABS: PLATELET COUNT 457 10x3/uL (130-400)
[2018-02-03 21:19] VITALS: BP 124/63
[2018-02-04 07:53] LABS: BASOPHILS 0.4 % (0-2); EOSINOPHILS 4.3 % (0-7); HEMATOCRIT 27.1 % (36.0-48.0); HEMOGLOBIN 8.4 g/dL (12-16); IMMATURE GRANULOCYTES 0.4 % (0-5); LYMPHOCYTES 36.4 % (15-50); MCH 25.7 pg (26.0-34.0); MCV 82.9 fL (80.0-100.0); MEAN PLATELET VOLUME 9.6 fL (7.4-10.4); MONOCYTES 9.6 % (2-11); NEUTROPHILS 48.9 % (40-80); PLATELET COUNT 409 10x3/uL (130-400); RBC 3.27 10x6/uL (4.00-5.40); RDW 14.5 % (11.5-14.5); WBC 5.6 10x3/uL (4.8-10.8)
[2018-02-04 08:10] LABS: ANION GAP 13.3 mmol/L (8-16); CALCIUM 8.6 mg/dL (8.5-10.1); CARBON DIOXIDE 25.3 mmol/L (21.0-32.0); CREATININE - SERUM 1.5 mg/dL (0.6-1.3); POTASSIUM - SERUM 3.6 mmol/L (3.5-5.1)
[2018-02-04 08:26] VITALS: BP 130/64
[2018-02-04 19:00] VITALS: BP 153/68
[2018-02-05 07:04] LABS: BASOPHILS 0.3 % (0-2); EOSINOPHILS 4.5 % (0-7); HEMATOCRIT 26.9 % (36.0-48.0); HEMOGLOBIN 8.4 g/dL (12-16); IMMATURE GRANULOCYTES 0.3 % (0-5); LYMPHOCYTES 37.8 % (15-50); MCHC 31.2 g/dL (31.0-37.0); MCV 83.3 fL (80.0-100.0); MEAN PLATELET VOLUME 9.7 fL (7.4-10.4); NEUTROPHILS 48.1 % (40-80); PLATELET COUNT 380 10x3/uL (130-400); RBC 3.23 10x6/uL (4.00-5.40); RDW 14.5 % (11.5-14.5); WBC 6.7 10x3/uL (4.8-10.8)
[2018-02-05 07:13] LABS: CALCIUM 8.9 mg/dL (8.5-10.1); CARBON DIOXIDE 26.3 mmol/L (21.0-32.0); CREATININE - SERUM 1.4 mg/dL (0.6-1.3); POTASSIUM - SERUM 4.3 mmol/L (3.5-5.1)
[2018-02-05 08:00] VITALS: BP 142/58
[2018-02-05 19:00] VITALS: BP 117/51
[2018-02-06 08:00] VITALS: BP 119/72
[2018-02-06] MEDS ORDERED: Percocet-10 PO (08:19)
== END 2018-02-06 13:00 | disposition home health service (06) | DRG 948 ==
LOC: D.REHAB 15:44
PROVIDERS: Emergency Medicine
DX: R53.81 Other malaise (principal); M96.89 Other intraoperative and postprocedural complications and disorders of the musculoskeletal system; D62 Acute posthemorrhagic anemia; N17.9 Acute kidney failure, unspecified; M19.90 Unspecified osteoarthritis, unspecified site; D50.9 Iron deficiency anemia, unspecified; E11.65 Type 2 diabetes mellitus with hyperglycemia; Z96.651 Presence of right artificial knee joint; M47.9 Spondylosis, unspecified; K21.9 Gastro-esophageal reflux disease without esophagitis; I10 Essential (primary) hypertension; T81.82XD Emphysema (subcutaneous) resulting from a procedure, subsequent encounter

== ENCOUNTER → 2018-08-12 12:11 | Outpatient (CLI) | payer OTHER ==
[2018-01-30 10:55] VITALS: BMI 24.9
[~2018-08-12 12:11] MED LIST changes: +Percocet-10 PO
== END | disposition home or self-care (01) ==
LOC: D.MRI 12:11
PROVIDERS: ATTEND Orthopaedic Surgery
DX: M54.16 Radiculopathy, lumbar region (principal)

== ENCOUNTER → 2018-09-03 10:11 | Outpatient (CLI) | payer OTHER ==
[2018-01-30 10:55] VITALS: BMI 24.9
--- NOTE | ~2018-09-03 | HEMODYNAMI ---
PATIENT:YUNG PETERSON MEDICAL RECORD: [id number] : 41 LOCATION:D. ADMISSION DATE: 09/03/18 Generatedon:09/03/201812:00 Patient name: YUNG PETERSON Patient #: [id number] SSN: D OB: 1945 Date of study: 09/03/2018 Page: Of Hemodynamic Procedure Report Patient Data Patient Demographics First Name: YUNG Gender: Female Last Name: NICHOLAS : 1945 Patient #: [id number] Age: 72 year(s) Race: Unknown Additional ID: [id number] Contact details Address: [address] [place] [address] State: [place] City: [place] Zip code: [address] Admission Admission Data Admission Date: 09/03/2018 Admission Time: 10:11 Procedure Procedure Types Cath Procedure Peripheral Cath Diagnostic Procedure Paginator Peripheral Procedures Miscellaneous Epidural Steroid Injection Procedure Description Procedure Date Procedure Date: 09/03/2018 Procedure Start Time: 11:39 Procedure Staff Name Function Danish Vargas MD Performing Physician Angela Dupont RT [place] [employer]acker Hemodynamics Rest Pre Cath Intra NCS Post Cath Procedure Log Time Note 11:03:43 KIT EPIDURAL CATHETERIZATION opened to sterile field. 11:10:55 Time tracking: Regular hours (M-F 7:00 - 5:00) 11:26:45 Patient received from Other to IR Alert and oriented. Tansferred to table in Prone position. 11:39:21 Physician arrived 11:39:22 --------ALL STOP TIME OUT------ 11:39:23 Final Timeout: patient, procedure, and site verified with staff and physician. All members of the team are in agreement. 11:39:42 Procedure started. 11:39:42 Full Disclosure recording started 11:39:51 Local anesthetic to Lumbar area with Lidocaine 1% by Danish Vargas MD.INITIAL ACCESS ONLY 11:52:09 Procedure ended.(Physican Out) Device Usage Item Name Manufacture Quantity Catalog Hospital Part Current Minima l Lot# / Number Charge Number Stock Stock Serial# Code KIT EPIDURAL Teleflex 1 [id number] CATHETERIZATION Signature Audit [place] Stage Time Signature Unsigned Intra-Procedure 09/03/2018 Angela Dupont 11:59:58 AM RT(R) [facility] [address] [place] [address]
== END | disposition home or self-care (01) ==
LOC: D.SP 08-29 10:00 → D.RAD 08-29 10:00 → D.SP 08-29 11:00 → D.RAD 08-29 11:00 → D.SP 10:11 → D.RAD 11:00 → D.SP 11:00
PROVIDERS: ATTEND Orthopaedic Surgery
DX: M54.5 Low back pain (principal); M54.16 Radiculopathy, lumbar region; Z01.812 Encounter for preprocedural laboratory examination

== ENCOUNTER → 2019-08-06 19:57 | Outpatient (CLI) | payer OTHER ==
[2018-01-30 10:55] VITALS: BMI 24.9
[2019-08-06 20:18] LABS: BASOPHILS 0.3 % (0-2); EOSINOPHILS 3.1 % (0-7); HEMATOCRIT 30.7 % (36.0-48.0); HEMOGLOBIN 8.9 g/dL (12-16); IMMATURE GRANULOCYTES 0.2 % (0-5); LYMPHOCYTES 27.2 % (15-50); MCH 23.7 pg (26.0-34.0); MCV 81.6 fL (80.0-100.0); MONOCYTES 6.1 % (2-11); NEUTROPHILS 63.1 % (40-80); PLATELET COUNT 314 10x3/uL (130-400); RBC 3.76 10x6/uL (4.00-5.40); RDW 15.9 % (11.5-14.5); WBC 6.4 10x3/uL (4.8-10.8)
[2019-08-06 21:31] LABS: ERYTHROCYTE SEDIMENTATION RATE 11 mm/hr (0-30)
== END | disposition home or self-care (01) ==
LOC: D.LABREF 19:57
PROVIDERS: ATTEND Orthopaedic Surgery
DX: M25.561 Pain in right knee (principal)